=== PATIENT | male | born 1985 | race Caucasian/White ===

== ENCOUNTER 2016-09-11 12:50 | Emergency (ER) | payer OTHER ==
[~2016-09-11] VITALS: Ht 175.3 cm; Wt 69.0 kg
[~2016-09-11 12:50] MED LIST: FLEXERIL10 MG PO; NAPROSYN500 MG PO; OXYCODONE HCL15 MG PO; OXYCONTIN20 MG PO; SKELAXIN800 MG PO; VALIUM5 MG PO; ZOFRAN ODT4 MG PO; ZOFRAN4 MG PO
[2016-09-11] MEDS ORDERED: OPANA ER10 MG PO (14:04)
[2016-09-11 15:01] VITALS: BP 129/92
== END 2016-09-11 15:04 | disposition home or self-care (01) ==
LOC: EXP 12:50 → EME 12:50 → EXP 15:04
DX: S64.21XA Injury of radial nerve at wrist and hand level of right arm, initial encounter (principal); F17.200 Nicotine dependence, unspecified, uncomplicated; W18.30XA Fall on same level, unspecified, initial encounter
CPT/HCPCS: 73090; 73110; 99281; 99284

== ENCOUNTER 2017-02-10 17:51 | Emergency (ER) | payer OTHER ==
[~2017-02-10] VITALS: Ht 175.3 cm; Wt 71.2 kg
[~2017-02-10 17:51] MED LIST changes: +OPANA ER10 MG PO
[2017-02-10] MEDS ORDERED: BACTRIM,SEPT1 TABLET PO (20:49)
[2017-02-10 21:03] VITALS: BP 156/96
== END 2017-02-10 21:03 | disposition home or self-care (01) ==
LOC: EME 17:51
PROC: 0H9DXZZ Drainage of Right Lower Arm Skin, External Approach (ICD-10-PCS; principal; 2017-02-10)
DX: L02.413 Cutaneous abscess of right upper limb (principal); F17.200 Nicotine dependence, unspecified, uncomplicated
CPT/HCPCS: 99281; 99283

== ENCOUNTER 2017-08-29 01:27 | Emergency (ER) | payer OTHER ==
[~2017-08-29] VITALS: Ht 175.3 cm; Wt 73.4 kg
[~2017-08-29 01:27] MED LIST changes: +BACTRIM,SEPT1 TABLET PO
[2017-08-29 01:53] LABS: HEMATOCRIT 43.4 % (38.0-50.0); HEMOGLOBIN 15.7 G/DL (12.5-16.6); MCH 29.7 PG (29.0-34.0); MCHC 36.2 G/DL (30.0-36.0); PLATELET COUNT 577 K/uL (156-360); RBC DIS.WIDTH-CV 13.7 % (11.8-14.6); RBC DIS.WIDTH-SD 40.9 % (39-53); RED BLOOD COUNT 5.29 M/uL (4.00-5.50); WHITE BLOOD COUNT 13.1 K/uL (4.1-10.2)
[2017-08-29 02:14] LABS: ALBUMIN 4.8 G/DL (3.2-4.8); ALKALINE PHOSPHATASE 89 IU/L (3-129); ALT (GPT) 17 IU/L (3-49); AST (GOT) 42 IU/L (2-34); CHLORIDE 103 MEQ/L (99-109); CREATININE 0.9 MG/DL (0.6-1.3); GFR ESTIMATE (CALCULATED) > 59 mL/min/ (58.99-99999); GLUCOSE 118 mg/dL (70-99); POTASSIUM 5.4 MEQ/L (3.7-5.4); SODIUM 138 MEQ/L (136-147); TOTAL BILIRUBIN 0.6 MG/DL (0.0-1.0); TOTAL PROTEIN 8.7 G/DL (6.4-8.3); UREA NITROGEN (BUN) 12 mg/dL (9-23)
[2017-08-29 02:37] LABS: LIPASE 19 U/L (1.0-51.0)
[2017-08-29] MEDS ORDERED: ZOFRAN ODT4 MG PO (04:36)
[2017-08-29 05:04] VITALS: BP 132/64
== END 2017-08-29 05:10 | disposition home or self-care (01) ==
LOC: EME 01:27
DX: R11.2 Nausea with vomiting, unspecified (principal); R10.84 Generalized abdominal pain; F11.23 Opioid dependence with withdrawal; G89.29 Other chronic pain; F17.200 Nicotine dependence, unspecified, uncomplicated
CPT/HCPCS: 74177; 80053; 81003; 83690; 85027; 99281; 99285; J1200; J2405; J2765; J3010; J7030; S0028